=== PATIENT | female | born 1985 | race Hispanic/Latino ===

== ENCOUNTER 2018-08-07 12:13 | Emergency (ER) | payer MEDICAID ==
--- NOTE | 2018-08-07 12:42 | RAD ---
EXAM: XR Ankle Rt 3 View STANDARD PROVIDED CLINICAL HISTORY: Right ankle pain COMPARISON: None FINDINGS: Nondisplaced Cazares B distal fibular fracture. No additional fracture evident. Ankle mortise appears s ymmetric. Joint spaces appear preserved. IMPRESSION: Nondisplaced Cazares B distal fibular fracture.
[2018-08-07] MEDS ORDERED: HYDROcodone/Acetaminophen 5/325 mg Tablet ONE (13:09)
[2018-08-07] MEDS ORDERED: Ondansetron ODT 4 MG TAB ONE (13:11)
== END 2018-08-07 14:34 | disposition home or self-care (01) ==
LOC: ERS 12:13
DX: S82.831A Other fracture of upper and lower end of right fibula, initial encounter for closed fracture (principal); F41.9 Anxiety disorder, unspecified; X50.1XXA Overexertion from prolonged static or awkward postures, initial encounter
CPT/HCPCS: 27786; Q0162